=== PATIENT | male | born 1955 | race Caucasian/White ===

== ENCOUNTER 2016-12-08 10:13 | Inpatient (IN) | payer BC ==
[~2016-12-08 10:13] MED LIST: ISOVUE-370 76%-LOCM 1 ML ONE
[2016-12-08 10:52] LABS: #Eosinphils 0.1 thou/uL (0.0-0.7); #Lymphocytes 1.1 thou/uL (1.20-3.40); #Monocytes 0.7 thou/uL (0.11-0.59); #Neutrophils 6.3 thou/uL (1.40-6.50); %Basophils 0.3 % (0.0-1.0); %Eosinophils 0.8 % (0.0-10.0); %Lymphocytes 13.8 % (21.0-51.0); %Monocytes 8.3 % (0.0-10.0); Hematocrit 56.1 % (42.0-52.0); Mean Platelet Volume 9.5 fL (7.4-10.4); Red Blood Cell (RBC) Count 5.67 mill/uL (4.70-6.10); White Blood Cell (WBC) Count 8.2 thou/uL (4.8-10.8)
--- NOTE | 2016-12-08 10:56 | RAD ---
AP VIEW CHEST: HISTORY: Atrial fibrillation. FINDINGS: AP view chest is obtained on 12/08/16. Comparison study is not available. AP view chest demonstrates mild cardiomegaly. The lungs are well aerated. No evidence of acute int rathoracic abnormality seen. No evidence of effusions, pneumonia, or pneumothorax seen. Rotator cu ff surgical repair hardware is seen in the left humerus. IMPRESSION: Cardiomegaly. POS: [facility]
[2016-12-08 11:19] LABS: Troponin I Less than 0.010 ng/mL (< 0.028)
[2016-12-08] MEDS ORDERED: Enoxaparin Sodium 80 MG/0.8 ML SYRINGE ONE (11:35)
[2016-12-08 12:02] LABS: ALT (SGPT) 23 U/L (8-55); AST (SGOT) 21 U/L (5-34); Alkaline Phosphatase 54 U/L (40-150); Anion Gap 9 mmol/L (10-20); BUN (Urea Nitrogen) 13 mg/dL (8.4-25.7); Bilirubin, Total 1.2 mg/dL (0.2-1.2); CK (CPK) 96 U/L (30-200); Calc. Creatinine Clearance 0 mL/min (70-130); Calcium 8.3 mg/dL (7.8-10.44); Carbon Dioxide 23 mmol/L (23-31); Chloride 109 mmol/L (98-107); Estimated GFR-MDRD 82; Globulin 2.4 g/dL (2.4-3.5); Lipase 18 U/L (8-78); Protein, Total 6.3 g/dL (5.8-8.1)
[2016-12-08 12:40] LABS: Magnesium 1.8 mg/dL (1.6-2.6); Phosphorus 2.4 mg/dL (2.3-4.7)
[2016-12-08 12:44] LABS: Hemoglobin A1c 5.1 % (4.0-6.0)
[2016-12-08 13:13] LABS: PTT 33.8 SEC (22.9-36.1); Prothrombin Time 13.6 SEC (12.0-14.7)
[2016-12-08 14:27] LABS: Troponin I Less than 0.010 ng/mL (< 0.028)
--- NOTE | 2016-12-08 14:45 | HP ---
DATE OF ADMISSION: 12/08/2016 PRIMARY CARE PHYSICIAN: None. PRIMARY SPECIAL TECHNICAL OPERATIONS OFFICER: None. CHIEF COMPLAINT: Dyspnea on exertion of 2 months' duration. HISTORY OF PRESENT ILLNESS: The patient is a 61-year-old male with no significant cardiac history who presented to the emergency room with above complaints. Over the last 2 months, patient has dyspnea on exertion. He denies any chest pain, palpitations, lightheadedness, dizziness, diaphoresis or syncope. He denies any recent immobilization or travel. No fever or chills reported. He consumes excessive caffeine on the daily basis. He denies any history of thyroid abnormalities. He denies any previous cardiac workup including stress test or echocardiogram. Patient had significant dyspnea on exertion today while he was at work for which an EKG was done that was consistent with atrial fibrillation with rapid ventricular response. For this reason, he was sent to the emergency room for evaluation. In the emergency room, his initial vital signs showed temperature 98.4, respiration of 20, pulse rate of 149 with O2 saturation of 97% on room air. His EKG was consistent with atrial fibrillation with rapid ventricular response with nonspecific ST-T wave changes in the lateral leads. He received Cardizem 20 mg IV push and has been started on Cardizem drip. A 1 mg/kg Lovenox was also administered. He also received 1 liter IV fluids. PAST MEDICAL HISTORY: Reviewed with the patient and none. PAST SURGICAL HISTORY: 1. Madeline fundoplication. 2. Hernia repair. 3. Left rotator cuff surgery. ALLERGIES: No known drug allergies. CURRENT HOME MEDICATIONS: Monthly testosterone injections. SOCIAL HISTORY: Patient denies any history of drug use or smoking. Drinks alcohol socially. FAMILY HISTORY: Father with lung cancer. He was a smoker. Mother with ovarian cancer. REVIEW OF SYSTEMS: The following complete review of systems was negative, unless otherwise mentioned in the HPI or below: Constitutional: Weight loss or gain, ability to conduct usual activities. Skin: Rash, itching. Eyes: Double vision, pain. ENT/Mouth: Nose bleeding, neck stiffness, pain, tenderness. Cardiovascular: Palpitations, dyspnea on exertion, orthopnea. Respiratory: Shortness of breath, wheezing, cough, hemoptysis, fever or night sweats. Gastrointestinal: Poor appetite, abdominal pain, heartburn, nausea, vomiting, constipation, or diarrhea. Genitourinary: Urgency, frequency, dysuria, nocturia. Musculoskeletal: Pain, swelling. Neurologic/Psychiatric: Anxiety, depression. Allergy/Immunologic: Skin rash, bleeding tendency. PHYSICAL EXAMINATION: VITAL SIGNS: As discussed above. GENERAL: A 61-year-old male in no apparent distress. Denies any chest pain at this time. HEENT: Head atraumatic, normocephalic. Sclerae anicteric. Moist mucous membrane, no oral lesion. NECK: Supple, no JVD appreciated. No carotid bruit. LUNGS: Clear to auscultation bilaterally. HEART: S1, S2 present, irregularly irregular. No murmurs, rubs or gallops appreciated. ABDOMEN: Soft, nontender, bowel sounds present. EXTREMITIES: No edema or calf tenderness. NEUROLOGIC: Grossly nonfocal, moves all four extremities. PSYCHIATRY: Alert, awake, oriented x3. SKIN: Warm and dry. LYMPH NODES: No palpable lymph nodes in the neck. PERIPHERAL VASCULAR: Radial pulses palpable bilaterally. MUSCULOSKELETAL: No joint swelling or tenderness. LABORATORY DATA AND IMAGIN. CBC showed WBC of 8.2 with hemoglobin 18.7, hematocrit 56.1, platelet of 217. 2. Chemistries showed sodium 137, potassium 4.1, chloride 109, bicarbonate 23, BUN 13, creatinine 0.93. 3. Magnesium, phosphorus, and hemoglobin A1c in normal range. Cardiac enzymes were normal. 4. EKG by my review as discussed above. Chest x-ray by my review showed cardiomegaly. IMPRESSION: 1. Atrial fibrillation with rapid ventricular response. Etiology unclear at this time. Patient consumes excessive caffeine on a daily basis. TSH is pending at this time. We will continue Cardizem drip. We will continue Lovenox 1 mg/kg b.i.d. We will check echocardiogram. Consult Cardiology. We will keep him n.p.o. past midnight for possible MICHAEL cardioversion. Risks not limited to life threatening and bleeding from anticoagulation discussed with the patient, they stated understanding. 2. Chronic kidney disease stage 2. 3. Macrocytosis. 4. Abnormal EKG. Patient has S1, Q3, and T3 pattern. We will get a D-dimer. If D-dimer is elevated, we will consider CT angiogram of the chest. 5. Suspected sleep apnea. Outpatient sleep study is recommended. Plan of care was discussed with the patient and the family at the bedside. They stated understanding. MTDD
[2016-12-08] MEDS ORDERED: Diabetic Tussin 200 MG/10 ML UDCUP PO PRN (14:49)
[2016-12-08] MEDS ORDERED: Eucerin (Mineral Oil/Petrolatum,White) 30 gm Jar TOP PRN (14:49)
[2016-12-08] MEDS ORDERED: Sodium Chloride 0.9% 1,000 ML IV SCH (14:49)
[2016-12-08] MEDS ORDERED: Nitroglycerin 0.4 MG TAB (25 Tab Bottle) PO PRN (14:49)
[2016-12-08] MEDS ORDERED: Loratadine 10 MG TAB PO PRN (14:49)
[2016-12-08] MEDS ORDERED: Polyethylene Glycol 3350 17 GM Packet PO PRN (14:49)
[2016-12-08] MEDS ORDERED: Ondansetron HCl/PF 4 MG/2 ML Vial IVP PRN ×2 (14:49→14:51)
[2016-12-08] MEDS ORDERED: Senokot 8.6 MG TAB PO PRN (14:49)
[2016-12-08] MEDS ORDERED: Ondansetron ODT 4 MG TAB PO PRN (14:49)
[2016-12-08] MEDS ORDERED: Chloraseptic Spray 180 ml Bottle PO PRN (14:49)
[2016-12-08] MEDS ORDERED: Acetaminophen 325 MG TAB PO PRN ×2 (14:49→14:51)
[2016-12-08] MEDS ORDERED: Ondansetron ODT 4 MG TAB SL PRN (14:51)
[2016-12-08] MEDS ORDERED: Diltiazem HCl 125 MG, IV Admixture Fee 1 EACH in Sodium Chloride 0.9% 100 ML IVPB SCH (15:00)
[2016-12-08] MEDS ORDERED: Aspirin 81 mg Enteric Coated Tablet PO SCH (15:00)
--- NOTE | 2016-12-08 15:09 | CT ---
CT PULMONARY ANGIOGRAM WITH IV CONTRSAT AND 3D POSTPROCESSING: HISTORY: Elevated D-dimer, new-onset atrial fibrillation, shortness of breath. FINDINGS: There is good contrast opacification of the pulmonary arterial vasculature without filling defects t o suggest pulmonary embolism. There are vascular calcifications without evidence of aneurysmal dila tation of the thoracic aorta. No pleural or pericardial effusions are seen. No pneumothoraces, con fluent areas of consolidation, or lung mass identified. There mild degenerative changes in the spin e. There are postop changes of the left shoulder. There is fluid in the left subcoracoid recess ve rsus bursa. IMPRESSION: No CT evidence of pulmonary embolism. POS: [facility]
[2016-12-08 16:45] LABS: Troponin I Less than 0.010 ng/mL (< 0.028)
[2016-12-08] MEDS ORDERED: Diltiazem HCl SR 60 mg Capsule PO SCH (21:00)
--- NOTE | 2016-12-08 21:02 | CON ---
DATE OF CONSULTATION: 12/08/2016 REASON FOR CONSULTATION: New onset atrial fibrillation. PRIMARY PROVIDER: Nic Beatty M.D. HISTORY OF PRESENT ILLNESS: Mr. Buitrago is a very pleasant 61-year-old gentleman with no significa nt past medical history, who recently presented with palpitations. He states he has had malaise ove r the last several weeks. He donated his blood recently within the last several weeks and was told he had an irregular heart rhythm. This was confirmed with an EKG today and was told to go to the em ergency room. No chest pain or pressure noted. No other associated ameliorating or exacerbating fa ctors present. A CHADS-VASc score is 0. PAST MEDICAL HISTORY: None. PAST SURGICAL HISTORY: Hernia repair, rotator cuff surgery. ALLERGIES: None. MEDICATIONS: None. SOCIAL HISTORY: No current tobacco or alcohol use. FAMILY HISTORY: Negative for CAD. REVIEW OF SYSTEMS: Ten point review of systems is reviewed and as above, otherwise negative. PHYSICAL EXAMINATION: VITAL SIGNS: Blood pressure 136/93, pulse 87, temperature 97.1. GENERAL: Patient is a pleasant male, who is in no acute distress. The patient appears his stated age. VITAL SIGNS: NEUROLOGIC: The patient is alert and oriented times 3 with no focal neurologic deficits. HEENT: Sclerae without icterus. Mouth has moist mucous membranes with normal pallor. NECK: No JVD. Carotid upstroke brisk. No bruits bilaterally. LUNGS: Clear to auscultation with unlabored respirations. BACK: No scoliosis or kyphosis. CARDIAC: Irregularly irregular. ABDOMEN: Soft, nontender, nondistended. No peritoneal signs present. No hepatosplenomegaly. No abnormal striae. EXTREMITIES: 2+ femoral and 2+ dorsalis pedis pulses. No cyanosis, clubbing, or edema. SKIN: No gross abnormalities. PERTINENT LABS: Hemoglobin 18.7, chloride 109, BUN 13, creatinine 0.93. IMPRESSION: New onset atrial fibrillation. RECOMMENDATIONS: 1. Patient's CHADS-VASc score is 0. We would recommend full dose aspirin. 2. Dose of diltiazem 180 one p.o. x1 now, then reevaluate in a.m. 3. Echo with Doppler. 4. Further recommendations in a.m.
[2016-12-08] MEDS ORDERED: Enoxaparin Sodium 80 MG/0.8 ML SYRINGE SC SCH ×2 (23:00→23:55)
[2016-12-09 06:37] LABS: #Eosinphils 0.1 thou/uL (0.0-0.7); #Lymphocytes 1.6 thou/uL (1.20-3.40); #Monocytes 0.6 thou/uL (0.11-0.59); #Neutrophils 4.4 thou/uL (1.40-6.50); %Basophils 0.7 % (0.0-1.0); %Eosinophils 1.3 % (0.0-10.0); %Lymphocytes 23.7 % (21.0-51.0); %Monocytes 9.4 % (0.0-10.0); Hematocrit 54.5 % (42.0-52.0); Mean Platelet Volume 8.2 fL (7.4-10.4); Red Blood Cell (RBC) Count 5.45 mill/uL (4.70-6.10); White Blood Cell (WBC) Count 6.7 thou/uL (4.8-10.8)
[2016-12-09 06:55] LABS: Anion Gap 15 mmol/L (10-20); BUN (Urea Nitrogen) 12 mg/dL (8.4-25.7); BUN/Creatinine Ratio 14.29; Calc. Creatinine Clearance 106 mL/min (70-130); Calcium 8.8 mg/dL (7.8-10.44); Carbon Dioxide 20 mmol/L (23-31); Chloride 106 mmol/L (98-107); Cholesterol 131 mg/dl (< 200 Desired); Estimated GFR-MDRD Greater than 90; LDL Cholesterol, Calculated 75 mg/dL; Phosphorus 2.3 mg/dL (2.3-4.7)
--- NOTE | 2016-12-09 08:57 | PRG ---
DATE OF SERVICE: 12/09/2016 Mr. Buitrago is doing well. No current complaints. His heart rate has improved. He is currently on 2.5 mg IV Cardizem per hour. PHYSICAL EXAMINATION: VITAL SIGNS: Blood pressure 125/87, pulse 70, temperature 98.4. LUNGS: Clear to auscultation. CARDIAC: Irregular, irregular. ABDOMEN: Soft, nontender, nondistended. EXTREMITIES: No edema. IMPRESSION: Atrial fibrillation. RECOMMENDATIONS: 1. Discontinue IV Cardizem. 2. Add Cardizem 180 one p.o. q.a.m. 3. Check echo. 4. Etiology of atrial fibrillation likely related to obstructive sleep apnea. states he stops breathing and has significant snoring at night. Plan is to proceed with an outpatient sleep study. If LVEF is within normal limits and his heart ra te is controlled, it would be okay from my standpoint to discharge home. I also discussed anticoagulation therapy with Mr. Buitrago. CHADS-VASc score is 0. After discussin g the risks and benefits, he has decided to proceed with full dose aspirin. Would also recommend Pe pcid Complete given risk for erosive gastritis.
[2016-12-09] MEDS ORDERED: Enoxaparin Sodium 80 MG/0.8 ML SYRINGE SC SCH ×2 (09:00→22:00)
[2016-12-09] MEDS ORDERED: Aspirin 81 mg Enteric Coated Tablet PO SCH (09:00)
--- NOTE | 2016-12-09 19:36 | PDOC.PN ---
- Subjective Encounter Start Date: 12/09/16 Encounter Start Time: 17:00 Patient seen and examined. No new complaints. No overnight events - Objective Resuscitation Status: Resuscitation Status FULL:Full Resuscitation MAR Reviewed: Yes Vital Signs & Weight: Vital Signs (12 hours) Temp Pulse Resp BP BP Pulse Ox 12/09/16 16:25 97.8 F 74 16 128/75 95 12/09/16 12:05 98.7 F 89 16 122/90 94 L 12/09/16 09:42 98.2 F 60 18 139/92 H 97 12/09/16 09:00 98.2 F 60 18 94 L 12/09/16 08:11 96 Weight Weight 183 lb 9.6 oz I&O: 12/08/16 12/09/16 12/10/16 06:59 06:59 06:59 Intake Total 856 Output Total 1500 Balance -644 Result Diagrams: 12/09/16 05:44 12/09/16 05:44 Radiology Reviewed by me: No (Echo - EF 30-35%) EKG Reviewed by me: Yes (Tele Afib) Phys Exam - Physical Examination Constitutional: NAD Respiratory: no wheezing, no rales, no rhonchi, clear to auscultation bilateral Cardiovascular: no significant murmur, no rub, irregular no heaves/pulsations Gastrointestinal: soft, non-tender, no distention, positive bowel sounds Musculoskeletal: no edema Neurological: non-focal, normal sensation, moves all 4 limbs Psychiatric: normal affect, A&O x 3 Dx/Plan - Plan IMPRESSION: 1. Atrial fibrillation with rapid ventricular response. 2. Chronic kidney disease stage 2. 3. Macrocytosis. 4. Abnormal EKG. 5. Suspected sleep apnea. Outpatient sleep study is recommended. 6. Chronic systolic heart failure - EF 30-35% - new diagnosis PLAN: * Off Cardizem drip * Resume Lovenox - one dose today - confirmed with call center associate Cardiology * DC Cardizem * Start Toprol XL 25 mg BID for rate control with Lisinopril 2.5 mg daily * ?ASA - will d/w Cardiology * Add Statins * Cont other meds as below Review of Systems - Review of Systems Constitutional: negative: Fever, Chills, Sweats, Weakness, Malaise, Other Cardiovascular: negative: Chest Pain, Palpitations, Orthopnea, Paroxysmal Noc. Dyspnea, Edema, Light Headedness, Other Gastrointestinal: negative: Nausea, Vomiting, Abdominal Pain, Diarrhea, Constipation, Melena, Hematochezia, Other - Medications/Allergies Allergies/Adverse Reactions: Allergies Allergy/AdvReac Type Severity Reaction Status Date / Time No Known Allergies Allergy Unverified 12/08/16 11:45 Medications: Current Medications Acetaminophen (Tylenol) 650 mg PO Q4H PRN PRN Reason: Headache/Fever or Pain Last Admin: 12/09/16 19:28 Dose: 650 mg Albuterol/Ipratropium (Duoneb) 3 ml NEB Q2H PRN PRN Reason: SOB &/or Wheezing Enoxaparin Sodium (Lovenox) 80 mg SC 1000,2200 ARCHIE Guaifenesin (Robitussin Sf) 200 mg PO Q4H PRN PRN Reason: Cough Hydralazine HCl (Apresoline) 10 mg SLOW IVP Q4H PRN PRN Reason: SBP Greater Than 180 Lisinopril (Zestril) 2.5 mg PO DAILY ARCHIE Loratadine (Claritin) 10 mg PO DAILYPRN PRN PRN Reason: Sinus Symptoms Metoprolol Succinate (Toprol Xl) 25 mg PO BID ARCHIE Mineral Oil/White Petrolatum (Eucerin Cream) 0 gm TOP BIDPRN PRN PRN Reason: Dry Skin Nitroglycerin (Nitrostat) 0.4 mg PO Q5MIN PRN PRN Reason: Chest Pain Ondansetron HCl (Zofran Odt) 4 mg PO Q6H PRN PRN Reason: Nausea/Vomiting Ondansetron HCl (Zofran) 4 mg IVP Q6H PRN PRN Reason: Nausea/Vomiting Phenol (Chloraseptic [place] 180 Ml Bot) 0 ml PO BIDPRN PRN PRN Reason: Sore Throat Polyethylene Glycol (Miralax) 17 gm PO DAILY PRN PRN Reason: Constipation Senna (Senokot) 2 tab PO HSPRN PRN PRN Reason: Constipation Sodium Chloride (Flush - Normal Saline) 10 ml IVF PRN PRN PRN Reason: Saline Flush
[2016-12-09] MEDS ORDERED: Diltiazem HCl 125 MG, IV Admixture Fee 1 EACH in Sodium Chloride 0.9% 100 ML SLOW IVP SCH (21:30)
[2016-12-10] MEDS ORDERED: Aspirin 325 mg Enteric Coated Tablet PO SCH (09:00)
--- NOTE | 2016-12-10 12:38 | PDOC.PN ---
- Subjective Encounter Start Date: 12/10/16 Encounter Start Time: 12:00 Patient seen and examined. No new complaints. Overnight events noted. RVR yesterday evening - Objective Resuscitation Status: Resuscitation Status FULL:Full Resuscitation MAR Reviewed: Yes Vital Signs & Weight: Vital Signs (12 hours) Temp Pulse Resp BP BP Pulse Ox 12/10/16 11:25 97.9 F 61 20 126/82 95 12/10/16 04:00 97.5 F L 91 20 115/82 96 Weight Weight 183 lb 3.2 oz I&O: 12/09/16 12/10/16 12/11/16 06:59 06:59 06:59 Intake Total 856 720 Output Total 1500 1000 Balance -644 -280 Result Diagrams: 12/09/16 05:44 12/09/16 05:44 EKG Reviewed by me: Yes (Tele Afib) Phys Exam - Physical Examination Constitutional: NAD Respiratory: no wheezing, no rhonchi Cardiovascular: no rub, irregular Gastrointestinal: soft, non-tender, positive bowel sounds Musculoskeletal: no edema Neurological: non-focal, moves all 4 limbs Psychiatric: A&O x 3 Dx/Plan - Plan IMPRESSION: 1. Atrial fibrillation with rapid ventricular response. rate controlled on Toprol 2. Chronic kidney disease stage 2. 3. Macrocytosis. 4. Abnormal EKG. 5. Suspected sleep apnea. Outpatient sleep study is recommended. 6. Chronic systolic heart failure - EF 30-35% - new diagnosis - on ACEI/BB PLAN: * Received one dose of Lovenox last night. Will d/w Cardiology * Cont Toprol XL 25 mg BID * Cont Lisinopril 2.5 mg daily/Statins * ?ASA - will d/w Cardiology * Cont other meds as below Review of Systems - Review of Systems Constitutional: negative: Fever, Chills, Sweats, Weakness, Malaise, Other Cardiovascular: negative: Chest Pain, Palpitations, Orthopnea, Paroxysmal Noc. Dyspnea, Edema, Light Headedness, Other Gastrointestinal: negative: Nausea, Vomiting, Abdominal Pain, Diarrhea, Constipation, Melena, Hematochezia, Other Genitourinary: negative: Dysuria, Frequency, Incontinence, Hematuria, Retention , Other Neurological: negative: Weakness, Numbness, Incoordination, Change in Speech, Confusion, Seizures, Other - Medications/Allergies Allergies/Adverse Reactions: Allergies Allergy/AdvReac Type Severity Reaction Status Date / Time No Known Allergies Allergy Unverified 12/08/16 11:45 Medications: Current Medications Acetaminophen (Tylenol) 650 mg PO Q4H PRN PRN Reason: Headache/Fever or Pain Last Admin: 12/09/16 19:28 Dose: 650 mg Albuterol/Ipratropium (Duoneb) 3 ml NEB Q2H PRN PRN Reason: SOB &/or Wheezing Atorvastatin Calcium (Lipitor) 10 mg PO HS ARCHIE Guaifenesin (Robitussin Sf) 200 mg PO Q4H PRN PRN Reason: Cough Hydralazine HCl (Apresoline) 10 mg SLOW IVP Q4H PRN PRN Reason: SBP Greater Than 180 Diltiazem HCl 125 mg/Miscellaneous Medication 1 each/ Sodium Chloride 125 mls @ 5 mls/hr SLOW IVP INF ARCHIE; As Directed PRN Reason: Protocol Lisinopril (Zestril) 2.5 mg PO DAILY ARCHIE Loratadine (Claritin) 10 mg PO DAILYPRN PRN PRN Reason: Sinus Symptoms Metoprolol Succinate (Toprol Xl) 25 mg PO BID ARCHIE Last Admin: 12/09/16 21:56 Dose: 25 mg Mineral Oil/White Petrolatum (Eucerin Cream) 0 gm TOP BIDPRN PRN PRN Reason: Dry Skin Nitroglycerin (Nitrostat) 0.4 mg PO Q5MIN PRN PRN Reason: Chest Pain Ondansetron HCl (Zofran Odt) 4 mg PO Q6H PRN PRN Reason: Nausea/Vomiting Ondansetron HCl (Zofran) 4 mg IVP Q6H PRN PRN Reason: Nausea/Vomiting Phenol (Chloraseptic [place] 180 Ml Bot) 0 ml PO BIDPRN PRN PRN Reason: Sore Throat Polyethylene Glycol (Miralax) 17 gm PO DAILY PRN PRN Reason: Constipation Senna (Senokot) 2 tab PO HSPRN PRN PRN Reason: Constipation Sodium Chloride (Flush - Normal Saline) 10 ml IVF PRN PRN PRN Reason: Saline Flush
[2016-12-10] MEDS: Lisinopril 2.5 MG TAB PO SCH (12:45)
--- NOTE | 2016-12-10 16:56 | PDOC.CTH ---
Cardiology Progress Note - Subjective No new issues or complaints. - Objective Vital Signs Temp Pulse Pulse Pulse Resp BP BP 12/10/16 16:05 97.3 F L 83 18 12/10/16 12:57 90 85 126/82 12/10/16 12:45 83 122/82 12/10/16 11:25 97.9 F 61 20 12/10/16 08:05 98.2 F 83 18 12/10/16 08:00 98.2 F 83 18 BP BP BP Pulse Ox Pulse Ox Pulse Ox 12/10/16 16:05 125/86 96 12/10/16 12:57 133/98 H 96 98 12/10/16 12:45 12/10/16 11:25 126/82 95 12/10/16 08:05 122/82 97 12/10/16 08:00 97 Weight 183 lb 3.2 oz 12/09/16 12/10/16 12/11/16 06:59 06:59 06:59 Intake Total 856 720 720 Output Total 1500 1000 Balance -644 -280 720 - Physical Examination General/Neuro: alert & oriented x3, NAD Neck: no JVD present Lungs: unlabored respirations Heart: other: (Irregular) Abdomen: NT/ND Extremities: other: (no edema.) - Telemetry Telemetry Rhythm: Afib HR 80-100 - Labs Result Diagrams: 12/09/16 05:44 12/09/16 05:44 Troponin/CKMB CK-MB (CK-2) 2.1 ng/mL (0-6.6) 12/08/16 10:40 Troponin I Less than 0.010 ng/mL (< 0.028) 12/08/16 15:16 - Assessment/Plan 1. Afib RVR, new onset. 2. Severe dilated Cardiomyopathy, new onset. PLAN: - I had a long conversation with him and his family of how to proceed with his workup. Options to do this outpatient versus inpatient. Also need for lifevest before discharge. he would like to complete work up as inpatient. Will plan on setting him up for a LH on Monday with Dr. Rhodes. He can discuss with him possible MICHAEL cardioversion after that depending on LHC findings. IF LV function remains low on LV gram he will need a lifevest before discharge otherwise more recommendations per results of LHC. - Will add amiodarone to his regimen in preparation for a possible cardioversion later this week. - Will not switch his ACT until after [facility].
[2016-12-10] MEDS ORDERED: Enoxaparin Sodium 80 MG/0.8 ML SYRINGE SC SCH (17:45)
[2016-12-10] MEDS: Atorvastatin Calcium 10 MG TAB PO SCH (20:24)
[2016-12-11 05:38] VITALS: BMI 25.6
[2016-12-11] MEDS: Enoxaparin Sodium 80 MG/0.8 ML SYRINGE SC SCH ×2 (09:42→21:30)
[2016-12-11] MEDS: Lisinopril 2.5 MG TAB PO SCH (09:46)
--- NOTE | 2016-12-11 10:13 | PDOC.PN ---
- Subjective Encounter Start Date: 12/11/16 Encounter Start Time: 09:20 Subjective: No complaint now. -: Some SOB last night. - Objective Resuscitation Status: Resuscitation Status FULL:Full Resuscitation Alert, in no distress. Vital Signs & Weight: Vital Signs (12 hours) Temp Pulse Resp BP BP Pulse Ox 12/11/16 09:46 100 134/68 12/11/16 05:10 97.3 F L 80 18 125/86 98 Weight Weight 183 lb 8 oz I&O: 12/10/16 12/11/16 12/12/16 06:59 06:59 06:59 Intake Total 720 1200 Output Total 1000 1450 Balance -280 -250 Result Diagrams: 12/09/16 05:44 12/09/16 05:44 Phys Exam - Physical Examination HEENT: sclera anicteric Neck: no JVD Respiratory: clear to auscultation bilateral Cardiovascular: RRR Gastrointestinal: soft, non-tender, no distention Musculoskeletal: no edema Neurological: moves all 4 limbs Psychiatric: A&O x 3 Dx/Plan (1) Atrial fibrillation Code(s): I48.91 - UNSPECIFIED ATRIAL FIBRILLATION Status: Acute Plan: On amiodarone, lovenox. Comment: new, .. evaluation in progress. (2) CKD (chronic kidney disease) Code(s): N18.9 - CHRONIC KIDNEY DISEASE, UNSPECIFIED Status: Acute Comment: serum creat lower. (3) CHF (congestive heart failure) Code(s): I50.9 - HEART FAILURE, UNSPECIFIED Status: Acute Plan: On lifevest. For cardiac cath tomorrow. Comment: with low EF. - Plan -: Continue current therapy. -: F/u with [facility]. * .
--- NOTE | 2016-12-11 15:06 | PDOC.CTH ---
Cardiology Progress Note - Subjective No new issues or concerns. - Objective Vital Signs Temp Pulse Pulse Pulse Resp BP BP 12/11/16 12:59 101 H 110 H 101/63 12/11/16 11:29 98.0 F 86 17 12/11/16 09:46 100 134/68 12/11/16 08:00 98.0 F 86 17 12/11/16 05:10 97.3 F L 80 18 BP BP BP Pulse Ox Pulse Ox Pulse Ox 12/11/16 12:59 155/84 H 98 98 12/11/16 11:29 111/72 97 12/11/16 09:46 12/11/16 08:00 134/68 95 12/11/16 05:10 125/86 98 Weight 183 lb 8 oz 12/10/16 12/11/16 12/12/16 06:59 06:59 06:59 Intake Total 720 1200 720 Output Total 1000 1450 Balance -280 -250 720 - Physical Examination General/Neuro: alert & oriented x3, NAD Neck: no JVD present Lungs: unlabored respirations Heart: other: (Irregular) Abdomen: NT/ND Extremities: + edema B (Trace) - Telemetry Telemetry Rhythm: Afib HR 80's. - Labs Result Diagrams: 12/09/16 05:44 12/09/16 05:44 Troponin/CKMB CK-MB (CK-2) 2.1 ng/mL (0-6.6) 12/08/16 10:40 Troponin I Less than 0.010 ng/mL (< 0.028) 12/08/16 15:16 - Assessment/Plan 1. Afib RVR, new onset. 2. Severe dilated Cardiomyopathy, new onset. PLAN: - Continue Lovenox SQ today, no more after midnight for [facility] tomorrow. - [facility] tomorrow. We spoke about risks and benefits, risks including but nor limited to stroke, OR, , bleeding and needing blood transfusions, vascular injury, limb loss, organ loss, need gfor emergent CABG, contrast reactions. He understands and verbalizes understanding of this, He agrees to proceed. Dr. Rhodes will do tomorrow.
[2016-12-11] MEDS ORDERED: Communication Order-Pharmacy FS SCH (15:15)
[2016-12-11] MEDS ORDERED: Sodium Chloride 0.9% 1,000 ML IV SCH (15:15)
[2016-12-11] MEDS: Atorvastatin Calcium 10 MG TAB PO SCH (21:30)
[2016-12-12] MEDS: Lisinopril 2.5 MG TAB PO SCH (05:34)
[2016-12-12] MEDS ORDERED: Nitroglycerin 100MG/250ML BOT 250 ML ONE (07:48)
[2016-12-12] MEDS ORDERED: Heparin 10,000 UNITS/1 ML VIAL ONE (07:48)
[2016-12-12] MEDS ORDERED: Midazolam HCl 2 mg/2 ml Vial ONE (08:01)
[2016-12-12] MEDS ORDERED: Fentanyl 100 MCG/2 ML VIAL ONE (08:02)
[2016-12-12] MEDS ORDERED: Acetaminophen/Codeine 30-300mg Tablet PO PRN ×2 (08:29)
[2016-12-12] MEDS ORDERED: traMADol HCl 50 MG TAB PO PRN (08:29)
[2016-12-12] MEDS ORDERED: Nitroglycerin 0.4 MG TAB (25 Tab Bottle) SL PRN (08:29)
[2016-12-12] MEDS ORDERED: Sodium Chloride 0.9% 200 ML IV SCH (08:30)
[2016-12-12] MEDS ORDERED: Sodium Chloride 0.9% 1,000 ML IV SCH (08:30)
--- NOTE | 2016-12-12 10:22 | PDOC.PN ---
- Subjective Encounter Start Date: 12/12/16 Encounter Start Time: 10:20 Patient seen and examined. No new complaints. No overnight events. feels good. had heart cath this AM. No chest pain or palpitation reported. - Objective Resuscitation Status: Resuscitation Status FULL:Full Resuscitation Vital Signs & Weight: Vital Signs (12 hours) Temp Pulse Resp BP BP Pulse Ox 12/12/16 09:20 98.4 F 73 16 105/74 94 L 12/12/16 05:34 76 110/70 12/12/16 04:00 97.8 F 76 18 110/70 96 Weight Weight 183 lb 12.8 oz I&O: 12/11/16 12/12/16 12/13/16 06:59 06:59 06:59 Intake Total 1200 1180 240 Output Total 1450 2175 Balance -250 -995 240 Result Diagrams: 12/09/16 05:44 12/09/16 05:44 Phys Exam - Physical Examination Constitutional: NAD HEENT: sclera anicteric Neck: supple Respiratory: no wheezing, no rales Cardiovascular: irregular Gastrointestinal: soft Musculoskeletal: no edema Neurological: non-focal, moves all 4 limbs Psychiatric: normal affect, A&O x 3 Skin: no rash Dx/Plan (1) Atrial fibrillation Code(s): I48.91 - UNSPECIFIED ATRIAL FIBRILLATION Status: Acute Comment: new , .. evaluation in progress. (2) CHF (congestive heart failure) Code(s): I50.9 - HEART FAILURE, UNSPECIFIED Status: Acute Comment: with low EF. (3) CKD (chronic kidney disease) Code(s): N18.9 - CHRONIC KIDNEY DISEASE, UNSPECIFIED Status: Acute Comment: serum creat lower. - Plan cont current plan of care, plan discussed w/ family * . [facility] with moderate CAD No stents placed. Aggressive medical management Life vest Electric cardioversion planned in next few weeks. will f/u with cardiology for further plans and medication recs. AM labs. Advance diet as tolerated.
[2016-12-12] MEDS ORDERED: Iopamidol 370 76% 100 ML VIAL ONE (17:12)
[2016-12-12] MEDS: Apixaban 5 MG TAB PO SCH (20:25)
[2016-12-12] MEDS: Atorvastatin Calcium 10 MG TAB PO SCH (20:25)
[2016-12-13] MEDS: Lisinopril 2.5 MG TAB PO SCH (08:06)
[2016-12-13] MEDS: Apixaban 5 MG TAB PO SCH (08:06)
--- NOTE | 2016-12-13 09:41 | PDOC.CTH ---
Cardiology Progress Note - Subjective Pt doing well. No complaints. - Objective Vital Signs Temp Pulse Resp BP BP BP Pulse Ox 12/13/16 08:08 98.2 F 111 H 16 98 12/13/16 08:06 111 H 130/74 12/13/16 08:00 98.2 F 111 H 16 130/74 98 12/13/16 04:00 97.5 F L 71 18 122/83 97 12/13/16 02:27 96 12/12/16 23:43 97.8 F 78 18 121/73 96 Weight 200 lb 12/12/16 12/13/16 12/14/16 06:59 06:59 06:59 Intake Total 1180 1860 Output Total 2175 1125 Balance -995 735 - Physical Examination General/Neuro: alert & oriented x3, NAD Neck: carotid US brisk, no JVD present Lungs: CTA, unlabored respirations Heart: PMI normal, other: (irr) Abdomen: no HSM, NT/ND Extremities: + femoral B - Labs Result Diagrams: 12/09/16 05:44 12/09/16 05:44 Troponin/CKMB CK-MB (CK-2) 2.1 ng/mL (0-6.6) 12/08/16 10:40 Troponin I Less than 0.010 ng/mL (< 0.028) 12/08/16 15:16 - Assessment/Plan 1. Afib-decrease amiodarone to QAM. Continue NOAC. Plan on CV in 4 weeks after amiodarone theraputic and on NOAC for 4 weeks 2. NICM-on ACEI. Add coreg 3. TUCKER-OP pullmonary consult
[2016-12-13] MEDS ORDERED: Carvedilol 6.25 MG TAB PO SCH ×4 (09:45→21:00)
--- NOTE | 2016-12-13 10:26 | PDOC.PN ---
- Subjective Encounter Start Date: 12/13/16 Encounter Start Time: 10:24 Patient seen and examined. No new complaints. No overnight events feels good and got life vest wants to go home. No chest pain or sob or dizziness. - Objective Resuscitation Status: Resuscitation Status FULL:Full Resuscitation MAR Reviewed: Yes Vital Signs & Weight: Vital Signs (12 hours) Temp Pulse Pulse Pulse Resp BP BP 12/13/16 10:18 130/74 12/13/16 09:22 115 H 99 133/83 12/13/16 08:08 98.2 F 111 H 16 12/13/16 08:06 111 H 130/74 12/13/16 08:00 98.2 F 111 H 16 12/13/16 04:00 97.5 F L 71 18 12/13/16 02:27 12/12/16 23:43 97.8 F 78 18 BP BP BP Pulse Ox Pulse Ox 12/13/16 10:18 12/13/16 09:22 112/74 98 12/13/16 08:08 98 12/13/16 08:06 12/13/16 08:00 130/74 98 12/13/16 04:00 122/83 97 12/13/16 02:27 96 12/12/16 23:43 121/73 96 Weight Weight 200 lb I&O: 12/12/16 12/13/16 12/14/16 06:59 06:59 06:59 Intake Total 1180 1860 Output Total 2175 1125 Balance -995 735 Result Diagrams: 12/09/16 05:44 12/09/16 05:44 Phys Exam - Physical Examination Constitutional: NAD HEENT: sclera anicteric Neck: supple Respiratory: no wheezing, no rales Cardiovascular: RRR Gastrointestinal: soft Musculoskeletal: no edema Neurological: non-focal, moves all 4 limbs Psychiatric: normal affect, A&O x 3 Skin: no rash Dx/Plan (1) Atrial fibrillation Code(s): I48.91 - UNSPECIFIED ATRIAL FIBRILLATION Status: Acute Comment: new , .. evaluation in progress. (2) CHF (congestive heart failure) Code(s): I50.9 - HEART FAILURE, UNSPECIFIED Status: Acute Comment: with low EF. (3) CKD (chronic kidney disease) Code(s): N18.9 - CHRONIC KIDNEY DISEASE, UNSPECIFIED Status: Acute Comment: serum creat lower. - Plan * . Ok with card to DC home DC home on cardiac meds per cardiology recs. change meto to coreg add lisinopril continue eliquis and Asa f/u with cardiology in one week. Life vest in place and instructions given.
[2016-12-13 14:21] VITALS: BP 112/71; TEMP 97.8
--- NOTE | 2016-12-13 23:57 | DIS ---
DATE OF ADMISSION: 12/08/2016 DATE OF DISCHARGE: 12/13/2016 DISCHARGE DIAGNOSES: Atrial fibrillation, nonischemic cardiomyopathy, possible obstructive sleep ap fuentes, chronic kidney disease stage 2, macrocytosis. PROCEDURES: 1. Heart catheterization which showed moderate coronary artery disease managed with recommendations for aggressive medical management. 2. Echocardiogram with ejection fraction of 30%-35%, global hypokinesis. 3. CT angio of the chest to rule out PE and negative for any pulmonary embolism. CONSULTATIONS: Dr. Rhodes from Cardiology. HOSPITAL COURSE: This is a 61-year-old male who was admitted to the hospital with shortness of anthony th. He did not have any significant medical history and was not taking any medications. He was fou nd to have atrial fibrillation in his work physical and was advised to come to the hospital. He had Cardiology consult. He was started on anticoagulation and also rate control medications . He also had a heart catheterization, which showed moderate coronary artery disease with no stents need ed and plan was to have continue aggressive medical management. The patient was started on Eliquis and was on beta-levy. His metoprolol was switched to carvedil ol. His lisinopril was added for the cardiomyopathy and was discharged home for followup as outpati ent. Patient will need cardioversion after being on anticoagulation for 4 weeks and also on amiodar one being therapeutic for 4 weeks. Patient to follow up with Cardiology. Patient also need outpati ent followup with Pulmonology and possible sleep studies done. CONDITION ON DISCHARGE: Stable. DISPOSITION: To home. DISCHARGE FOLLOWUP: 1. Follow with primary care physician. 2. Follow with Cardiology, Dr. Rhodes in 1-2 weeks with possible cardioversion in 4 weeks. Cont inue amiodarone and anticoagulation with Eliquis for now. 3. Outpatient pulmonary consult and followup for sleep study to rule out sleep apnea. DISCHARGE MEDICATIONS: Aspirin 81 mg p.o. daily, lisinopril 2.5 mg p.o. daily, Nitrostat p.r.n., ca rvedilol 6.25 b.i.d., Lipitor 10 mg p.o. at bedtime, Eliquis 5 mg p.o. b.i.d., and amiodarone 400 mg p.o. q.a.m. Patient to follow up with Dr. Rhodes as outpatient. Please note that I did spend more than 35 minutes coordinating the discharge care of this patient.
--- NOTE | 2016-12-16 14:50 | EKG ---
Test Reason : Blood Pressure : / mmHG Vent. Rate : 151 BPM Atrial Rate : 170 BPM P-R Int : 000 ms QRS Dur : 090 ms QT Int : 294 ms P-R-T Axes : 000 069 225 degrees QTc Int : 465 ms Atrial fibrillation with rapid ventricular response Nonspecific ST and T wave abnormality Abnormal ECG Confirmed by NAOMI PEREIRA D.O. ([id number]), market editor [id number] ([id number] on 12/16/2016 2:50:36 PM Referred By: Confirmed By:NAOMI PEREIRA D.O.
== END 2016-12-13 12:07 | disposition home or self-care (01) | DRG 287 ==
LOC: ERS 10:13 → 2NO 12:12
PROVIDERS: ADMIT Internal Medicine; ATTEND Internal Medicine
PROC: 4A023N7 Measurement of Cardiac Sampling and Pressure, Left Heart, Percutaneous Approach (ICD-10-PCS; principal; 2016-12-12)
PROC: B2111ZZ Fluoroscopy of Multiple Coronary Arteries using Low Osmolar Contrast (ICD-10-PCS; 2016-12-12)
PROC: B2151ZZ Fluoroscopy of Left Heart using Low Osmolar Contrast (ICD-10-PCS; 2016-12-12)
DX: I48.91 Unspecified atrial fibrillation (principal); I42.8 Other cardiomyopathies; I50.22 Chronic systolic (congestive) heart failure; N18.2 Chronic kidney disease, stage 2 (mild); D75.89 Other specified diseases of blood and blood-forming organs; G47.33 Obstructive sleep apnea (adult) (pediatric); I25.10 Atherosclerotic heart disease of native coronary artery without angina pectoris; R94.31 Abnormal electrocardiogram [ECG] [EKG]; Z80.1 Family history of malignant neoplasm of trachea, bronchus and lung
CPT/HCPCS: 36415; 71010; 71275; 80053; 80061; 80069; 82553; 83036; 83690; 83735; 83880; 84100; 84443; 84484; 85025; 85379; 85610; 85730; 93005; 93306; 93454; 93798; 94760; 96361; 96365; 96366; 96372; 96376; 99152; C1769; J1644; J1650; J2250; J3010; J7050

== ENCOUNTER 2017-01-03 20:30 | Outpatient (CLI) | payer BC | END 2017-01-03 20:31 | disposition home or self-care (01) | LOC: SLEEPLAB 20:30 | PROVIDERS: ATTEND Internal Medicine Critical Care Medicine | DX: G47.33 Obstructive sleep apnea (adult) (pediatric) (principal); G25.81 Restless legs syndrome; R06.83 Snoring | CPT/HCPCS: 95811 ==

== ENCOUNTER 2017-02-01 06:15 | Day surgery (SDC) | payer BC ==
[2017-01-31 12:55] VITALS: BMI 24.3
[2017-02-01] MEDS ORDERED: Diprivan 20 ML ONE (07:59)
[2017-02-01] MEDS ORDERED: Propofol 200 MG/20 ML VIAL ONE (08:08)
== END 2017-02-01 10:10 | disposition home or self-care (01) ==
LOC: SDC 06:15
PROVIDERS: ATTEND Internal Medicine Cardiovascular Disease
DX: I48.0 Paroxysmal atrial fibrillation (principal); I42.9 Cardiomyopathy, unspecified; I25.10 Atherosclerotic heart disease of native coronary artery without angina pectoris; G47.30 Sleep apnea, unspecified; Z79.01 Long term (current) use of anticoagulants; Z79.899 Other long term (current) drug therapy; Z98.890 Other specified postprocedural states
CPT/HCPCS: 92960; J1644; J2704